=== PATIENT | male | born 1930 | race Caucasian/White ===

== ENCOUNTER → 2016-10-24 | Outpatient (CLI) | payer MEDICARE, OTHER ==
--- NOTE | 2016-10-24 12:13 | RADRPT ---
PROCEDURE: XR Right hip and pelvis. CLINICAL INDICATION: Right hip pain and pelvic pain. TECHNIQUE: 3 views. Frontal pelvis. Frontal and lateral right hip. COMPARISON: None. FINDINGS: There is no fracture or dislocation. Vascular calcifications are present consistent with atherosclerosis. The articular surfaces are intact. There are mild degenerative changes of both hips with small oste ophytes noted. There are degenerative changes of the lower lumbar spine. There is no lytic or blastic lesion. There is no radiopaque foreign body. IMPRESSION: 1. Atherosclerosis. 2. Degenerative changes of the lower lumbar spine. 3. Mild degenerative changes of both hips. 4. Otherwise unremarkable study. RPTAT: QQ .Jose Juan Calabrese MD, MD Date Time Electronically viewed and signed by .Jose Juan Calabrese MD, on 10/24/2016 12:13 .R/
== END | disposition home or self-care (01) ==
LOC: HKI 09:03
PROVIDERS: ATTEND Orthopaedic Surgery
DX: M25.551 Pain in right hip (principal); M76.11 Psoas tendinitis, right hip; G20 Parkinson's disease
CPT/HCPCS: 73502; G0463